=== PATIENT | male | born 1985 | race African-American/Black ===

== ENCOUNTER 2019-12-28 22:54 | Emergency (ER) | payer SELFPAY ==
[2019-12-29] MEDS ORDERED: ACETAMINOPHEN 325 MG TABLET PO ONE (02:03)
[2019-12-29 02:40] LABS: A TYPE INFLUENZA AG NEGATIVE (NEGATIVE); B INFLUENZA AG NEGATIVE (NEGATIVE)
--- NOTE | 2019-12-29 02:55 | RADIOLOGY REPORT (SQ) ---
EXAM DESCRIPTION: XR CHEST 1 VIEW COMPLETED DATE/TME: 12/29/2019 02:03 CLINICAL HISTORY: 34 years, Male, fever COMPARISON: None. NUMBER OF VIEWS: TECHNIQUE: LIMITATIONS: None. FINDINGS: There is infiltrate at the right lung base, compatible with pneumonia. The lungs are otherwise clear. There is no significant sized pleural effusion. The heart and mediastinum are unremarkable. Pulmonary vascularity appears normal. IMPRESSION: Right basilar pneumonia. copyright 2010 [employer]- All Rights Reserved
[2019-12-29] MEDS ORDERED: AMOXICILLIN TR/POT CLAVULANATE 875-125 MG TAB PO ONE (03:35)
--- NOTE | 2019-12-29 03:35 | ER Document Report ---
ED Fever - General Chief Complaint: Fever Stated Complaint: FEVER,HEADACHE,CHILLS Time Seen by Provider: 12/29/19 01:17 Primary Care Provider: [facility] [Provider Group] - Follow up in 1 week Notes: Patient is a 34-year-old male who presents emergency department with a 2-day history of fever. Patient states that 2 days ago, he generally did not feel well. He went got tested for COVID-19 and was negative. The next day, he was tested for flu and the test was negative. Today, the patient still did not feel well. He has another COVID test pending. Patient states that he is starting to have bilateral ear pain, but mainly on the left side. States that he has been taking ibuprofen and Tylenol, but still continues to have fevers. She has a history of sleep apnea. Wears a CPAP at night. - Related Data Allergies/Adverse Reactions: No Known Allergies Allergy (Unverified 12/29/19 01:40) Past Medical History - General Information source: Patient - Social History Smoking Status: Current Every Day Smoker Chew tobacco use (# tins/day): No Smoking Education Provided: Yes - >3 minutes Frequency of alcohol use: daily Drug Abuse: None Family History: Reviewed & Not Pertinent Patient has homicidal ideation: No Review of Systems - Review of Systems Notes: REVIEW OF SYSTEMS: CONSTITUTIONAL : See HPI. EENT: Denies eye, throat, or mouth pain, discharge, or symptoms. Denies nasal or sinus congestion. See HPI. CARDIOVASCULAR: Denies chest pain. RESPIRATORY: Denies shortness of breath, cough, congestion, difficulty breathing, or wheezing. GASTROINTESTINAL: Denies nausea, vomiting, and diarrhea. Denies abdominal pain. Denies constipation. GENITOURINARY: Denies difficulty urinating, burning, blood in urine, urgency or frequency. MUSCULOSKELETAL: Denies neck and back pain. Denies joint pain or swelling. SKIN: Denies rash, itchiness, or lesions HEMATOLOGIC : Denies easy bruising or bleeding. LYMPHATIC: Denies swollen, painful, enlarged glands. NEUROLOGICAL: Denies no numbness or tingling denies weakness. Denies headache. Denies altered mental status. Denies alteration in speech. PSYCHIATRIC: Denies stress, anxiety, alteration in sleep patterns, or depression. All other systems reviewed and negative. Physical Exam - Vital signs Vitals: Temp Pulse Resp BP Pulse Ox 99.4 F 88 18 105/77 100 12/28/19 23:43 12/28/19 23:43 12/28/19 23:43 12/28/19 23:43 12/28/19 23:43 - Notes Notes: PHYSICAL EXAMINATION: GENERAL: Appears well, healthy, well-nourished, no acute distress. HEAD: Normocephalic, atraumatic. EYES: PERRL, conjunctiva normal, all extraocular movements intact, sclera nonicteric ENT: Moist mucous membranes. Erythema noted to bilateral tympanic membranes NECK: Supple, no noticeable swelling, redness, rash. Normal range of motion. LUNGS: Coarse breath sounds noted to right lower lobe. Clear breath sounds noted throughout other lung gonzalez. CARDIOVASCULAR: S1-S2, regular rate, regular rhythm. Radial pulses 2+, normal. ABDOMEN: Normoactive bowel sounds. Soft, nontender, no guarding, no rebound tenderness, and no masses palpated. EXTREMITIES: Normal strength and range of motion, no pitting or edema. No cyanosis. NEUROLOGICAL: Moves all extremities upon command. Strength 5/5 in all extremities. PSYCH: Normal mood, normal affect. SKIN: Warm, dry. No rash, lesions, ulcerations noted. Normal skin turgor. Course - Re-evaluation Re-evalutation: 12/29/19 Chest x-ray shows right basilar pneumonia. Flu and strep tests are negative. Patient also has bilateral otitis media on physical exam. No tenderness at mastoid process. Will place the patient on Augmentin. Patient's COVID test is pending on outpatient basis. Patient is to follow-up with his primary care provider once his COVID test comes back as negative. He is in agreement with this plan. Follow-up precautions were given. Verbal discharge instructions were given to the patient. They verbalized understanding. They are stable for discharge. - Vital Signs Vital signs: Temp Pulse Resp BP Pulse Ox 99.4 F 94 20 102/56 L 98 12/29/19 03:41 12/29/19 03:41 12/29/19 03:41 12/29/19 03:41 12/29/19 03:41 Discharge - Discharge Clinical Impression: Bilateral pneumonia Qualifiers: Pneumonia type: due to unspecified organism Lung location: unspecified part of lung Qualified Code(s): J18.9 - Pneumonia, unspecified organism Bilateral otitis media Qualifiers: Otitis media type: suppurative Chronicity: acute Recurrence: not specified as recurrent Spontaneous tympanic membrane rupture: without spontaneous rupture Qualified Code(s): H66.003 - Acute suppurative otitis media without spontaneous rupture of ear drum, bilateral Condition: Stable Disposition: HOME, SELF-CARE Additional Instructions: You were seen today in the emergency department for a fever and generally not feeling well. You have ear infections and pneumonia. Take your antibiotics as prescribed. Make sure you finish your antibiotics, even if you start to feel better. Take ibuprofen 600 mg and acetaminophen 1000 mg every 6 hours for your pain or fever. Please continue to stay in quarantine until your COVID test is back. If your COVID test is negative, follow-up with your primary care provider next week. If it is positive, stay in quarantine for a total of 2 weeks. Prescriptions: Amoxicillin/Potassium Clav [Augmentin 875-125 Tablet] 1 tab PO BID #20 tab Forms: Return to Work Referrals: [facility] [Provider Group] - Follow up in 1 week
[2019-12-29 03:45] VITALS: BP 102/56
== END 2019-12-29 03:50 | disposition home or self-care (01) ==
LOC: ER 22:54
DX: J18.9 Pneumonia, unspecified organism (principal); H66.003 Acute suppurative otitis media without spontaneous rupture of ear drum, bilateral; R50.9 Fever, unspecified; H92.03 Otalgia, bilateral; F17.200 Nicotine dependence, unspecified, uncomplicated; G47.30 Sleep apnea, unspecified; Z99.89 Dependence on other enabling machines and devices
CPT/HCPCS: 99284; 87070; 87880; 87804; 71045; J3490; 87077

== ENCOUNTER 2019-12-31 05:16 | Inpatient (IN) | payer OTHER ==
--- NOTE | 2019-12-31 06:25 | RADIOLOGY REPORT (SQ) ---
EXAM DESCRIPTION: XR CHEST 1 VIEW COMPLETED DATE/TME: 12/31/2019 00:00 CLINICAL HISTORY: 34 years, Male, shortness of breath COMPARISON: 12/29/2019 chest NUMBER OF VIEWS: 1 TECHNIQUE: Portable chest LIMITATIONS: None. FINDINGS: The heart size is normal. Worsening airspace opacities of the right lung base and right perihilar region. No pneumothorax. IMPRESSION: Worsening right lower lobe pneumonia copyright 2010 [employer]- All Rights Reserved
[2019-12-31 06:29] LABS: HEMATOCRIT 36.1 % (37.9-51.0); HEMOGLOBIN 12.9 g/dL (13.5-17.0); MEAN CORPUSCULAR HEMOGLOBIN 31.3 pg (27.0-33.4); MEAN CORPUSCULAR HGB CONC 35.8 g/dL (32.0-36.0); MEAN CORPUSCULAR VOLUME 88 fl (80-97); PLATELET COUNT 171 10^3/uL (150-450); RED BLOOD COUNT 4.12 10^6/uL (4.35-5.55); WHITE BLOOD COUNT 10.3 10^3/uL (4.0-10.5)
[2019-12-31 06:50] LABS: ALBUMIN 2.9 g/dL (3.5-5.0); ALKALINE PHOSPHATASE 134 U/L (38-126); ANION GAP 10 (5-19); ASPARTATE AMINO TRANSFERASE 107 U/L (17-59); BILIRUBIN,DIRECT 0.4 mg/dL (0.0-0.4); BILIRUBIN,TOTAL 0.7 mg/dL (0.2-1.3); BLOOD UREA NITROGEN 9 mg/dL (7-20); CALCIUM 8.2 mg/dL (8.4-10.2); CARBON DIOXIDE 23 mmol/L (22-30); CHLORIDE 98 mmol/L (98-107); GLUCOSE 145 mg/dL (75-110); POTASSIUM 3.9 mmol/L (3.6-5.0); TOTAL PROTEIN 5.9 g/dL (6.3-8.2)
[2019-12-31 06:51] LABS: APPEARANCE,URINE CLEAR; BILIRUBIN,URINE NEGATIVE (NEGATIVE); COLOR,URINE YELLOW; GLUCOSE, URINE NEGATIVE (NEGATIVE); KETONES,URINE TRACE mg/dL (NEGATIVE); LEUKOCYTE ESTERASE,URINE NEGATIVE (NEGATIVE); NITRITE,URINE NEGATIVE (NEGATIVE); PROTEIN,URINE 30 mg/dL (NEGATIVE); URINE SPECIFIC GRAVITY 1.006
[2019-12-31 07:05] LABS: ABSOLUTE LYMPHOCYTES# (MANUAL) 0.8 10^3/uL (0.5-4.7); ABSOLUTE MONOCYTES # (MANUAL) 0.5 10^3/uL (0.1-1.4); BAND NEUTROPHILS % (MANUAL) 2 % (3-5); BASOPHILS % (MANUAL) 0 % (0-2); EOSINOPHILS % (MANUAL) 0 % (0-6); LYMPHOCYTES % (MANUAL) 8 % (13-45); METAMYELOCYTES % (MANUAL) 1 % (0-1); MONOCYTES % (MANUAL) 5 % (3-13); SEGMENTED NEUTROPHILS % (MAN) 84 % (42-78); TOTAL CELLS COUNTED 100
[2019-12-31 07:06] LABS: ANISOCYTOSIS SLIGHT; PLATELET COMMENT ADEQUATE
[2019-12-31] MEDS ORDERED: LEVOFLOXACIN 750 MG/D5W RTU 750 MG/150 ML RTUPB IV ONE (07:07)
[2019-12-31] MEDS ORDERED: RINGERS SOLUTION,LACTATED 1,000 ML IV ONE (07:07)
--- NOTE | 2019-12-31 07:45 | ER Document Report ---
Entered by CATALINA ALLRED SCRIBE 12/31/19 0707 Acting as scribe for:ARAM BELLA MD ED Respiratory Problem - General Chief Complaint: Fever Stated Complaint: FEVER Time Seen by Provider: 12/31/19 06:49 Mode of Arrival: Ambulatory Information source: Patient Notes: This 34 year old male patient presents to the emergency department today with complaints of a continued non-productive cough with intermittent fevers and chills. Patient was seen here at this facility on 12/27 and was diagnosed with a right basilar pneumonia and he was sent home on augmentin. He reports that he has gotten worse since being seen that day, stating he has been sweating, feels hot, and generally bad with a continued non-productive cough. He has been tested for COVID twice, with the last time being on 12/26 at [facility] but he does not know the results yet. - Related Data Allergies/Adverse Reactions: No Known Allergies Allergy (Verified 12/31/19 05:59) Home Medications: amoxicillin, tylenol, motrin Past Medical History - General Information source: Patient - Social History Smoking Status: Current Every Day Smoker Cigarette use (# per day): Yes - 2 ppd Frequency of alcohol use: Heavy - at least 1 pint every evening Drug Abuse: None Lives with: Family Family History: Reviewed & Not Pertinent Pulmonary Medical History: Reports: Hx Pneumonia Past Surgical History: Reports: Hx Oral Surgery Review of Systems - Review of Systems Constitutional: No symptoms reported EENT: No symptoms reported Cardiovascular: No symptoms reported Respiratory: See HPI, Cough Gastrointestinal: No symptoms reported Genitourinary: No symptoms reported Male Genitourinary: No symptoms reported Musculoskeletal: No symptoms reported Skin: No symptoms reported Hematologic/Lymphatic: No symptoms reported Neurological/Psychological: No symptoms reported -: Yes All other systems reviewed and negative Physical Exam - Vital signs Vitals: Temp 100.5 F H 12/31/19 05:16 - Notes Notes: Physical Exam: General: Alert, appears uncomfortable. HEENT: Normocephalic. Atraumatic. PERRL. Extraocular movements intact. Oropharynx clear. Neck: Supple. Non-tender. Respiratory: Mild respiratory distress. Rhonchi at the right base, decreased air movement in the right base. Cardiovascular: Regular rate and rhythm. Abdominal: Normal Inspection. Non-tender. No distension. Normal Bowel Sounds. Back: No gross abnormalities. Extremities: Moves all four extremities. Upper extremities: Normal inspection. Normal ROM. Lower extremities: Normal inspection. No edema. Normal ROM. Neurological: Normal cognition. AAOx4. Normal speech. Psychological: Normal affect. Normal Mood. Skin: Warm. Diaphoretic. Normal color. Course - Re-evaluation Re-evalutation: 12/31/19 08:37 The patient was evaluated during the global COVID-19 pandemic and that diagnosis was suspected/considered upon their initial presentation. Their evaluation, treatment and testing was consistent with current guidelines for patients who present with complaints or symptoms that may be related to COVID-19. - Vital Signs Vital signs: Temp Pulse Resp BP Pulse Ox 100.5 F H 19 123/77 94 12/31/19 05:16 12/31/19 06:01 12/31/19 06:01 12/31/19 06:01 - Laboratory Result Diagrams: 12/31/19 05:53 12/31/19 05:53 Laboratory results interpreted by me: 12/31/19 12/31/19 12/31/19 05:53 05:53 05:53 RBC 4.12 L Hgb 12.9 L Hct 36.1 L Seg Neuts % (Manual) 84 H Band Neutrophils % 2 L Lymphocytes % (Manual) 8 L Abs Neuts (Manual) 9.0 H D-Dimer 2.79 H Sodium 130.6 L Glucose 145 H Calcium 8.2 L AST 107 H ALT 88 H Alkaline Phosphatase 134 H Lactate Dehydrogenase Total Protein 5.9 L Albumin 2.9 L Urine Protein Urine Ketones Urine Blood Urine Urobilinogen 12/31/19 12/31/19 05:53 06:12 RBC Hgb Hct Seg Neuts % (Manual) Band Neutrophils % Lymphocytes % (Manual) Abs Neuts (Manual) D-Dimer Sodium Glucose Calcium AST ALT Alkaline Phosphatase Lactate Dehydrogenase 339 H Total Protein Albumin Urine Protein 30 H Urine Ketones TRACE H Urine Blood SMALL H Urine Urobilinogen 2.0 H - Diagnostic Test Radiology reviewed: Image reviewed, Reports reviewed - Worsening right lower lobe pneumonia - Consults Dr. Mas Time consulted: 08:33 Consulted provider: will come to ER Discharge - Discharge Clinical Impression: Right lower lobe pneumonia Qualifiers: Pneumonia type: due to unspecified organism Qualified Code(s): J18.9 - Pneumonia, unspecified organism Fever Qualifiers: Fever type: unspecified Qualified Code(s): R50.9 - Fever, unspecified Leukocytosis Qualifiers: Leukocytosis type: bandemia Qualified Code(s): D72.825 - Bandemia Condition: Stable Disposition: ADMITTED INPATIENT Admitting Provider: Chace (Hospitalist) Unit Admitted: Medical Floor - COVID unit for PUI I personally performed the services described in the documentation, reviewed and edited the documentation which was dictated to the scribe in my presence, and it accurately records my words and actions.
[2019-12-31] MEDS ORDERED: ACETAMINOPHEN 325 MG TABLET PO ONE (07:57)
[2019-12-31] MEDS ORDERED: KETOROLAC TROMETHAMINE INJ/PF 30 MG/1 ML SDV IV ONE (07:57)
[2019-12-31] MEDS ORDERED: ONDANSETRON 4 MG TAB.RAPDIS PO PRN (10:54)
[2019-12-31] MEDS ORDERED: NORMAL SALINE 1000 ML 1,000 ML IV ONE (10:56)
[2019-12-31] MEDS ORDERED: ACETAMINOPHEN 325 MG TABLET PO PRN (10:59)
[2019-12-31] MEDS ORDERED: LORAZEPAM INJ 2 MG/1 ML VIAL IV PRN (11:01)
--- NOTE | 2019-12-31 11:06 | PDOC H&P ---
History of Present Illness Admission Date/PCP: 12/31/19 09:02 [facility] Patient complains of: generalized body malaise, dyspnea History of Present Illness: DENG ESPINOSA is a 34 year old male, PMH of arthritis, current everyday smoker,, who came back to the ED due to generalized malaise and high grade fevers. 5 days [employer], patient started to experience generalized body malaise with associated high grade fever 102. HE consulted [facility] 4 days [employer] where a COVID test was sent which was negative. He continued to have high grade fever, with generalized malaise, decreases appetite and minimal cough. He came back to [facility] and was retested for COVID 19. 2 days [employer], his symptoms worsened hence he came to [facility]. He was tested for the flu and strep which were negative. CXR revealed a right lower lobe pneumonia, bilateral otitis media and he was sent home on Ibuprofen, tylenol and augmentin. Persistence of his fever and body malaise prompted consult and admission. In the ED, BP 116/67, HR 80, RR23, O2sat 100%. WBC 10.3. CMP showed Na 130.6, elevated ferritin 634, transaminitis, LDH 339. CXR showed right lower lobe pneumonia worsening from previous CXR done 12/29/19. He was given levaquin and IV fluids. COVID test collected at [facility] on Monday came back negative today. He admits to smoking 2 packs a day for 8 years, he admits to drinking a pint of Vodka daily, no prior withdrawal symptoms. He uses CPAP at night. he denies any recent travel outside of [place]. He denies any recent IV drug use, no marijuana. Past Medical History Cardiac Medical History: Reports: None Pulmonary Medical History: Reports: Pneumonia EENT Medical History: Reports: None Neurological Medical History: Reports: None Endocrine Medical History: Reports: None Renal/ Medical History: Reports: None Malignancy Medical History: Reports: None GI Medical History: Reports: None Musculoskeltal Medical History: Reports: Arthritis Skin Medical History: Reports: None Psychiatric Medical History: Reports: Alcohol Dependency, Tobacco Dependency Traumatic Medical History: Reports: None Hematology: Reports: None Infectious Medical History: Reports: None Past Surgical History Past Surgical History: Reports: None Social History Information Source: Patient Lives with: Family Smoking Status: Current Every Day Smoker Cigarettes Packs Per Day: 40 Electronic Cigarette use?: No Number of Years Smokin Frequency of Alcohol Use: Heavy Hx Recreational Drug Use: No Drugs: None Hx Prescription Drug Abuse: No Family History Family History: Other - father had frequent pneumonia and CHF at the age of 50s Parental Family History Reviewed: Yes Children Family History Reviewed: Yes Sibling(s) Family History Reviewed.: Yes Medication/Allergy Home Medications: Amoxicillin/Potassium Clav [Augmentin 875-125 Tablet] 1 tab PO BID #20 tab 12/29/19 Acetaminophen [Tylenol 325 mg Tablet] 650 mg PO Q6HP PRN 12/31/19 Ibuprofen [Motrin 800 mg Tablet] 800 mg PO Q8HP PRN 12/31/19 Allergies/Adverse Reactions: No Known Allergies Allergy (Verified 12/31/19 05:59) Review of Systems Constitutional: PRESENT: anorexia, chills, fever(s), headache(s), weakness Eyes: PRESENT: as per HPI Ears: PRESENT: other - ear pain Cardiovascular: PRESENT: as per HPI Respiratory: PRESENT: cough, dyspnea, hemoptysis Gastrointestinal: PRESENT: as per HPI Genitourinary: PRESENT: as per HPI Musculoskeletal: PRESENT: as per HPI Integumentary: PRESENT: as per HPI Neurological: PRESENT: as per HPI Endocrine: PRESENT: as per HPI Hematologic/Lymphatic: PRESENT: as per HPI Physical Exam Vital Signs: Temp Pulse Resp BP Pulse Ox 99.7 F 21 H 123/74 96 12/31/19 08:50 12/31/19 10:01 12/31/19 10:01 12/31/19 10:01 Intake & Output 12/30/19 12/31/19 01/01/20 06:59 06:59 06:59 Intake Total 1150 Balance 1150 Weight 92.986 kg General appearance: PRESENT: no acute distress, well-nourished Head exam: PRESENT: atraumatic, normocephalic Eye exam: PRESENT: EOMI, PERRLA Ear exam: PRESENT: normal external ear exam Mouth exam: PRESENT: dry mucosa Neck exam: PRESENT: full ROM. ABSENT: lymphadenopathy Respiratory exam: PRESENT: clear to auscultation salima, symmetrical, tachypnea. ABSENT: rales, wheezes Cardiovascular exam: PRESENT: RRR, +S1, +S2 Pulses: PRESENT: +2 pedal pulses bilateral GI/Abdominal exam: PRESENT: normal bowel sounds, soft. ABSENT: rebound, tenderness Extremities exam: PRESENT: full ROM Musculoskeletal exam: PRESENT: full ROM Neurological exam: PRESENT: alert, awake, oriented to person, oriented to place, oriented to time Psychiatric exam: PRESENT: normal mood Results Laboratory Results: 12/31/19 05:53 12/31/19 05:53 12/31/19 12/31/19 12/31/19 05:53 05:53 06:12 WBC 10.3 RBC 4.12 L Hgb 12.9 L Hct 36.1 L MCV 88 MCH 31.3 MCHC 35.8 RDW 14.0 Plt Count 171 Seg Neutrophils % Not Reportable Sodium 130.6 L Potassium 3.9 Chloride 98 Carbon Dioxide 23 Anion Gap 10 BUN 9 Creatinine 1.16 Est GFR ( Amer) > 60 Glucose 145 H Calcium 8.2 L Total Bilirubin 0.7 AST 107 H Alkaline Phosphatase 134 H Total Protein 5.9 L Albumin 2.9 L Urine Color YELLOW Urine Appearance CLEAR Urine pH 6.0 Ur Specific [place] 1.006 Urine Protein 30 H Urine Glucose (UA) NEGATIVE Urine Ketones TRACE H Urine Blood SMALL H Urine Nitrite NEGATIVE Ur Leukocyte Esterase NEGATIVE Urine WBC (Auto) 8 Urine RBC (Auto) 1 Impressions: Chest X-Ray 12/31/19 00:00 IMPRESSION: Worsening right lower lobe pneumonia copyright 2011 [employer]- All Rights Reserved Assessment and Plan - Diagnosis (1) Right lower lobe pneumonia Qualifiers: Pneumonia type: due to unspecified organism Qualified Code(s): J18.9 - Pneumonia, unspecified organism Is this a current diagnosis for this admission?: Yes Plan: - came in with fever,generalized malaise, cough - CXR showed RLL pneumonia - flue negative, COVID negative x 2 - WBC 10.3 - LDH 339, AST 107, ALT 88, ALP 134 - Na 130.6 - Ddx: CAP fr legionella pneumonia, PCP pneumonia given elevated LDH, aspiration pneumonia, less likely COVID pneumonia given negative x 2 testing - awaiting blood and sputum culture - urine legionella, urine strep pneumo ag pending - ceftri and azithro for abx pending work up (2) Transaminitis Is this a current diagnosis for this admission?: Yes Plan: - AST 107, ALT 88, ALP 134 - he has a hx of heavy alcohol use which can explain transaminitis - also received augmentin which can elevate ALP - hepatitis panel sent - will monitor daily (3) Alcohol dependence Qualifiers: Substance use status: unspecified alcohol-induced disorder Qualified Code(s): F10.29 - Alcohol dependence with unspecified alcohol-induced disorder Is this a current diagnosis for this admission?: Yes Plan: - admits to drinking 1 pint of hennesy daily - last drink - will do CIWA score and ativan for withdrawal (4) Fever Qualifiers: Fever type: unspecified Qualified Code(s): R50.9 - Fever, unspecified Is this a current diagnosis for this admission?: Yes Plan: - due to Pneumonia - tylenol for fever - Time Time Spent with patient: 35 or more minutes Smoking Cessation Education: 3 to 10 minutes Medications reviewed and adjusted accordingly: Yes Anticipated Discharge Disposition: Home, Self Care Anticipated Discharge Timeframe: within 48 hours - Inpatient Certification Based on my medical assessment, after consideration of the patient's comor bidities, presenting symptoms, or acuity I expect that the services needed warrant INPATIENT care.: Yes I certify that my determination is in accordance with my understanding of Medicare's requirements for reasonable and necessary INPATIENT services [42 CFR 412.3e].: Yes Medical Necessity: Need for IV Antibiotics
[2019-12-31] MEDS: HEPARIN SOD (PORCINE) 5,000 UNIT/ML 1 ML VIAL SUBCUT SCH ×2 (15:55→22:29)
[2019-12-31 15:58] LABS: ANION GAP 11 (5-19); BLOOD UREA NITROGEN 10 mg/dL (7-20); CALCIUM 8.7 mg/dL (8.4-10.2); CARBON DIOXIDE 25 mmol/L (22-30); CHLORIDE 99 mmol/L (98-107); GLUCOSE 173 mg/dL (75-110); POTASSIUM 4.3 mmol/L (3.6-5.0)
[2019-12-31] MEDS: NORMAL SALINE 1000 ML 1,000 ML IV PRN (22:30)
[2020-01-01 05:38] LABS: HEPATITS B SURFACE ANTIGEN Negative (Negative)
[2020-01-01] MEDS: HEPARIN SOD (PORCINE) 5,000 UNIT/ML 1 ML VIAL SUBCUT SCH ×3 (06:04→21:49)
[2020-01-01 06:10] LABS: HEMATOCRIT 37.9 % (37.9-51.0); MEAN CORPUSCULAR HEMOGLOBIN 30.3 pg (27.0-33.4); MEAN CORPUSCULAR HGB CONC 34.4 g/dL (32.0-36.0); MEAN CORPUSCULAR VOLUME 88 fl (80-97); PLATELET COUNT 209 10^3/uL (150-450); RED CELL DISTRIBUTION WIDTH 14.3 % (11.5-14.0); WHITE BLOOD COUNT 16.1 10^3/uL (4.0-10.5)
[2020-01-01] MEDS: NORMAL SALINE 1000 ML 1,000 ML IV PRN ×3 (06:19→17:59)
[2020-01-01 06:20] LABS: ALBUMIN 2.9 g/dL (3.5-5.0); ALKALINE PHOSPHATASE 125 U/L (38-126); ANION GAP 8 (5-19); ASPARTATE AMINO TRANSFERASE 128 U/L (17-59); BILIRUBIN,DIRECT 0.3 mg/dL (0.0-0.4); BILIRUBIN,TOTAL 0.4 mg/dL (0.2-1.3); BLOOD UREA NITROGEN 13 mg/dL (7-20); CALCIUM 8.6 mg/dL (8.4-10.2); CARBON DIOXIDE 22 mmol/L (22-30); CHLORIDE 105 mmol/L (98-107); GLUCOSE 137 mg/dL (75-110); TOTAL PROTEIN 6.2 g/dL (6.3-8.2)
[2020-01-01 06:39] LABS: ABSOLUTE LYMPHOCYTES# (MANUAL) 1.4 10^3/uL (0.5-4.7); ABSOLUTE MONOCYTES # (MANUAL) 0.8 10^3/uL (0.1-1.4); BASOPHILS % (MANUAL) 0 % (0-2); EOSINOPHILS % (MANUAL) 0 % (0-6); LYMPHOCYTES % (MANUAL) 9 % (13-45); MONOCYTES % (MANUAL) 5 % (3-13); SEGMENTED NEUTROPHILS % (MAN) 86 % (42-78); TOTAL CELLS COUNTED 100
[2020-01-01 06:40] LABS: ANISOCYTOSIS SLIGHT; PLATELET COMMENT ADEQUATE; TOXIC GRANULATION SLIGHT
--- NOTE | 2020-01-01 06:46 | PDOC PROGRESS REPORT ---
Subjective Progress Note for:: 01/01/20 Subjective:: DENG ESPINOSA is a 34 year old male, PMH of arthritis, current everyday smoker,, who came back to the ED due to generalized malaise and high grade fevers. 5 days [employer], patient started to experience generalized body malaise with associated high grade fever 102. HE consulted [facility] 4 days [employer] where a COVID test was sent which was negative. He continued to have high grade fever, with generalized malaise, decreases appetite and minimal cough. He came back to [facility] and was retested for COVID 19. 2 days [employer], his symptoms worsened hence he came to [facility]. He was tested for the flu and strep which were negative. CXR revealed a right lower lobe pneumonia, bilateral otitis media and he was sent home on Ibuprofen, tylenol and augmentin. Persistence of his fever and body malaise prompted consult and admission. In the ED, BP 116/67, HR 80, RR23, O2sat 100%. WBC 10.3. CMP showed Na 130.6, elevated ferritin 634, transaminitis, LDH 339. CXR showed right lower lobe pneumonia worsening from previous CXR done 12/29/19. He was given levaquin and IV fluids. COVID test collected at [facility] [place] on Monday came back negative today. He admits to smoking 2 packs a day for 8 years, he admits to drinking a pint of Vodka daily, no prior withdrawal symptoms. He uses CPAP at night. he denies any recent travel outside of [place]. He denies any recent IV drug use, no marijuana. D2 hospital stay 01/01/20. Patient was seen and examined at bedside. Afebrile, still with body malaise but improved from yesterday, no SOB. Blood culture grew coagulase negative staph in 1 bottle. He is on d2 of ceftriaxone and azithro. Reason For Visit: RIGHT LOWER LOBE PNEUMONIA Physical Exam Vital Signs: Temp Pulse Resp BP Pulse Ox 98.2 F 96 21 H 129/61 H 97 12/31/19 15:49 01/01/20 02:00 12/31/19 15:49 12/31/19 15:49 01/01/20 05:17 Intake & Output 12/30/19 12/31/19 01/01/20 06:59 06:59 06:59 Intake Total 3571 Output Total 350 Balance 3221 Weight 92.986 kg General appearance: PRESENT: no acute distress, cooperative Head exam: PRESENT: atraumatic, normocephalic Eye exam: PRESENT: EOMI, PERRLA Mouth exam: PRESENT: moist Neck exam: PRESENT: full ROM Respiratory exam: PRESENT: rales, symmetrical, unlabored. ABSENT: tachypnea, wheezes Cardiovascular exam: PRESENT: RRR, +S1, +S2 GI/Abdominal exam: PRESENT: normal bowel sounds, soft. ABSENT: rebound, tenderness Extremities exam: PRESENT: full ROM Musculoskeletal exam: PRESENT: full ROM Neurological exam: PRESENT: alert, awake, oriented to person, oriented to place, oriented to time, oriented to situation Psychiatric exam: PRESENT: normal mood Skin exam: PRESENT: normal color Results Laboratory Results: 01/01/20 04:47 01/01/20 04:47 12/31/19 12/31/19 12/31/19 05:53 05:53 05:53 WBC 10.3 RBC 4.12 L Hgb 12.9 L Hct 36.1 L MCV 88 MCH 31.3 MCHC 35.8 RDW 14.0 Plt Count 171 Seg Neutrophils % Not Reportable Sodium 130.6 L Potassium 3.9 Chloride 98 Carbon Dioxide 23 Anion Gap 10 BUN 9 Creatinine 1.16 Est GFR ( Amer) > 60 Glucose 145 H Calcium 8.2 L Ferritin 634.00 H Total Bilirubin 0.7 AST 107 H Alkaline Phosphatase 134 H Total Protein 5.9 L Albumin 2.9 L Urine Color Urine Appearance Urine pH Ur Specific [place] Urine Protein Urine Glucose (UA) Urine Ketones Urine Blood Urine Nitrite Ur Leukocyte Esterase Urine WBC (Auto) Urine RBC (Auto) 12/31/19 12/31/19 01/01/20 06:12 15:07 04:47 WBC 16.1 H RBC 4.30 L Hgb 13.0 L Hct 37.9 MCV 88 MCH 30.3 MCHC 34.4 RDW 14.3 H Plt Count 209 Seg Neutrophils % Not Reportable Sodium 135.3 L Potassium 4.3 Chloride 99 Carbon Dioxide 25 Anion Gap 11 BUN 10 Creatinine 0.97 Est GFR ( Amer) > 60 Glucose 173 H Calcium 8.7 Ferritin Total Bilirubin AST Alkaline Phosphatase Total Protein Albumin Urine Color YELLOW Urine Appearance CLEAR Urine pH 6.0 Ur Specific [place] 1.006 Urine Protein 30 H Urine Glucose (UA) NEGATIVE Urine Ketones TRACE H Urine Blood SMALL H Urine Nitrite NEGATIVE Ur Leukocyte Esterase NEGATIVE Urine WBC (Auto) 8 Urine RBC (Auto) 1 01/01/20 04:47 WBC RBC Hgb Hct MCV MCH MCHC RDW Plt Count Seg Neutrophils % Sodium 135.1 L Potassium 5.0 Chloride 105 Carbon Dioxide 22 Anion Gap 8 BUN 13 Creatinine 0.82 Est GFR ( Amer) > 60 Glucose 137 H Calcium 8.6 Ferritin Total Bilirubin 0.4 AST 128 H Alkaline Phosphatase 125 Total Protein 6.2 L Albumin 2.9 L Urine Color Urine Appearance Urine pH Ur Specific [place] Urine Protein Urine Glucose (UA) Urine Ketones Urine Blood Urine Nitrite Ur Leukocyte Esterase Urine WBC (Auto) Urine RBC (Auto) Impressions: Chest X-Ray 12/31/19 00:00 IMPRESSION: Worsening right lower lobe pneumonia copyright 2011 [employer]- All Rights Reserved Assessment and Plan - Diagnosis (1) Right lower lobe pneumonia Qualifiers: Pneumonia type: due to unspecified organism Qualified Code(s): J18.9 - Pne umonia, unspecified organism Is this a current diagnosis for this admission?: Yes Plan: - came in with fever,generalized malaise, cough - CXR showed RLL pneumonia - flue negative, COVID negative x 2 - WBC 10.3>16.1 - LDH 339, AST 107, ALT 88, ALP 134 - Na 130.6 - Ddx: CAP fr legionella pneumonia, PCP pneumonia given elevated LDH, aspiration pneumonia, less likely COVID pneumonia given negative x 2 testing - blood culture 1 bottle growing coagulase negative staph probably a contaminant. Second bottle negative - urine legionella, urine strep pneumo ag pending - continue ceftri and azithro for abx pending work up (2) Transaminitis Is this a current diagnosis for this admission?: Yes Plan: - AST 107>128, ALT 88>117, ALP 134>125 - he has a hx of heavy alcohol use which can explain transaminitis, - also received augmentin which can elevate ALP - hepatitis panel negative - will monitor daily - advised to abstain from alcohol (3) Alcohol dependence Qualifiers: Substance use status: unspecified alcohol-induced disorder Qualified Code(s): F10.29 - Alcohol dependence with unspecified alcohol-induced disorder Is this a current diagnosis for this admission?: Yes Plan: - admits to drinking 1 pint of hensaraiy daily - last drink monday12/25/19 - will do CIWA score and ativan for withdrawal. So far has not required ativan for withdrawal (4) Fever Qualifiers: Fever type: unspecified Qualified Code(s): R50.9 - Fever, unspecified Is this a current diagnosis for this admission?: Yes Plan: - due to Pneumonia - tylenol for fever (5) Hyponatremia Is this a current diagnosis for this admission?: Yes Plan: - Na 130.6>135.1 - improved with IV fluids - - Time Time Spent with patient: 25-34 minutes Smoking Cessation Education: 3 to 10 minutes Medications reviewed and adjusted accordingly: Yes Anticipated Discharge Disposition: Home, Self Care Anticipated Discharge Timeframe: within 48 hours
[2020-01-01 07:57] LABS: HEPATITIS C VIRUS ANTIBODY <0.1 s/co ratio (0.0-0.9)
[2020-01-01] MEDS: CEFTRIAXONE 2 GM/D5W RTU 2 GM/50 ML RTUPB IV SCH (09:35)
[2020-01-01] MEDS: AZITHROMYCIN 250 MG TABLET PO SCH (09:35)
[2020-01-02] MEDS: NORMAL SALINE 1000 ML 1,000 ML IV PRN (03:00)
[2020-01-02] MEDS: HEPARIN SOD (PORCINE) 5,000 UNIT/ML 1 ML VIAL SUBCUT SCH (05:27)
[2020-01-02 07:04] LABS: HEMATOCRIT 35.6 % (37.9-51.0); HEMOGLOBIN 12.2 g/dL (13.5-17.0); MEAN CORPUSCULAR HEMOGLOBIN 30.7 pg (27.0-33.4); MEAN CORPUSCULAR HGB CONC 34.3 g/dL (32.0-36.0); MEAN CORPUSCULAR VOLUME 89 fl (80-97); PLATELET COUNT 240 10^3/uL (150-450); RED BLOOD COUNT 3.98 10^6/uL (4.35-5.55); RED CELL DISTRIBUTION WIDTH 14.5 % (11.5-14.0); WHITE BLOOD COUNT 9.2 10^3/uL (4.0-10.5)
[2020-01-02 07:14] LABS: ALBUMIN 2.6 g/dL (3.5-5.0); ALKALINE PHOSPHATASE 109 U/L (38-126); ANION GAP 7 (5-19); ASPARTATE AMINO TRANSFERASE 283 U/L (17-59); BILIRUBIN,DIRECT 0.2 mg/dL (0.0-0.4); BILIRUBIN,TOTAL 0.3 mg/dL (0.2-1.3); BLOOD UREA NITROGEN 16 mg/dL (7-20); CALCIUM 7.9 mg/dL (8.4-10.2); CARBON DIOXIDE 25 mmol/L (22-30); CHLORIDE 107 mmol/L (98-107); GLUCOSE 103 mg/dL (75-110); POTASSIUM 4.2 mmol/L (3.6-5.0); TOTAL PROTEIN 5.6 g/dL (6.3-8.2)
[2020-01-02 07:44] LABS: ABSOLUTE LYMPHOCYTES# (MANUAL) 3.4 10^3/uL (0.5-4.7); ABSOLUTE MONOCYTES # (MANUAL) 0.6 10^3/uL (0.1-1.4); BASOPHILS % (MANUAL) 0 % (0-2); EOSINOPHILS % (MANUAL) 3 % (0-6); LYMPHOCYTES % (MANUAL) 35 % (13-45); MONOCYTES % (MANUAL) 7 % (3-13); SEGMENTED NEUTROPHILS % (MAN) 49 % (42-78); TOTAL CELLS COUNTED 100
[2020-01-02 07:46] LABS: SMUDGE CELLS PRESENT
[2020-01-02 07:47] LABS: ANISOCYTOSIS SLIGHT; METAMYELOCYTES % (MANUAL) 3 % (0-1); MYELOCYTES % (MANUAL) 1 % (0); PLATELET COMMENT ADEQUATE; POIKILOCYTOSIS SLIGHT; TEAR DROP CELLS SLIGHT
[2020-01-02] MEDS: AZITHROMYCIN 250 MG TABLET PO SCH (10:01)
[2020-01-02] MEDS: CEFTRIAXONE 2 GM/D5W RTU 2 GM/50 ML RTUPB IV SCH (10:02)
--- NOTE | 2020-01-02 10:27 | PDOC DISCHARGE SUMMARY ---
Impression - Admit/DC Date/PCP Admission Date/Primary Care Provider: 12/31/19 09:02 [facility] Discharge Date: 01/02/20 - Discharge Diagnosis (1) Right lower lobe pneumonia Is this a current diagnosis for this admission?: Yes (2) Transaminitis Is this a current diagnosis for this admission?: Yes (3) Alcohol dependence Is this a current diagnosis for this admission?: Yes (4) Fever Is this a current diagnosis for this admission?: Yes (5) Hyponatremia Is this a current diagnosis for this admission?: Yes - Additional Information Discharge Diet: As Tolerated Discharge Activity: Activity As Tolerated [facility]errals: [facility] [Primary Care [facility]] - Follow up as needed Prescriptions: Levofloxacin [Levaquin 750 mg Tablet] 750 mg PO DAILY 5 Days #5 tab Benzonatate [Tessalon Perles 100 mg Capsule] 100 mg PO Q8HP PRN 5 Days #15 capsule PRN Reason: Home Medications: Acetaminophen [Tylenol 325 mg Tablet] 650 mg PO Q6HP PRN 12/31/19 Ibuprofen [Motrin 800 mg Tablet] 800 mg PO Q8HP PRN 12/31/19 Benzonatate [Tessalon Perles 100 mg Capsule] 100 mg PO Q8HP PRN 5 Days #15 capsule 01/02/20 Levofloxacin [Levaquin 750 mg Tablet] 750 mg PO DAILY 5 Days #5 tab 01/02/20 History of Present Illiness History of Present Illness: DENG ESPINOSA is a 34 year old male, PMH of arthritis, current everyday smoker,, who came back to the ED due to generalized malaise and high grade fevers. 5 days [employer], patient started to experience generalized body malaise with associated high grade fever 102. HE consulted [facility] 4 days [employer] where a COVID test was sent which was negative. He continued to have high grade fever, with generalized malaise, decreases appetite and minimal cough. He came back to [facility] and was retested for COVID 19. 2 days [employer], his symptoms worsened hence he came to [place] ED. He was tested for the flu and strep which were negative. CXR revealed a right lower lobe pneumonia, bilateral otitis media and he was sent home on Ibuprofen, tylenol and augmentin. Persistence of his fever and body malaise prompted consult and admission. In the ED, BP 116/67, HR 80, RR23, O2sat 100%. WBC 10.3. CMP showed Na 130.6, elevated ferritin 634, transaminitis, LDH 339. CXR showed right lower lobe pneumonia worsening from previous CXR done 12/29/19. He was given levaquin and IV fluids. COVID test collected at [facility] on Monday came back negative today. He admits to smoking 2 packs a day for 8 years, he admits to drinking a pint of Vodka daily, no prior withdrawal symptoms. He uses CPAP at night. he denies any recent travel outside of [place]. He denies any recent IV drug use, no marijuana. Hospital Course Hospital Course: The patient was started on IV ceftriaxone and azithromycin. 2nd HD, he remained afebrile with improvement of cough and body malaise. Hepatitis work up was negative. Blood cultures were negative. COVID test done outside were negative x 2. 3rd hospital day, he continued to improve and he was sent home on oral abx levaquin. He was advised to follow up with his PCP for a repeat CMP to monitor transaminitis. Physical Exam Vital Signs: Temp Pulse Resp BP Pulse Ox 98.5 F 61 18 115/65 100 01/02/20 07:27 01/02/20 07:27 01/02/20 07:27 01/02/20 07:27 01/02/20 07:27 Intake & Output 01/01/20 01/02/20 01/03/20 06:59 06:59 06:59 Intake Total 3571 2663 Output Total 350 Balance 3221 2663 Weight 94.2 kg 95.2 kg General appearance: PRESENT: no acute distress, cooperative Head exam: PRESENT: atraumatic, normocephalic Eye exam: PRESENT: EOMI, PERRLA Mouth exam: PRESENT: moist Neck exam: PRESENT: full ROM Respiratory exam: PRESENT: clear to auscultation salima, symmetrical, unlabored. ABSENT: crackles Cardiovascular exam: PRESENT: RRR, +S1, +S2 Pulses: PRESENT: normal radial pulses GI/Abdominal exam: PRESENT: normal bowel sounds, soft. ABSENT: guarding, tenderness Extremities exam: PRESENT: full ROM Musculoskeletal exam: PRESENT: full ROM Neurological exam: PRESENT: alert, awake, oriented to person, oriented to place, oriented to time, oriented to situation Psychiatric exam: PRESENT: normal mood Skin exam: PRESENT: normal color Results Laboratory Results: WBC 9.2 10^3/uL (4.0-10.5) 01/02/20 05:37 RBC 3.98 10^6/uL (4.35-5.55) L 01/02/20 05:37 Hgb 12.2 g/dL (13.5-17.0) L 01/02/20 05:37 Hct 35.6 % (37.9-51.0) L 01/02/20 05:37 MCV 89 fl (80-97) 01/02/20 05:37 MCH 30.7 pg (27.0-33.4) 01/02/20 05:37 MCHC 34.3 g/dL (32.0-36.0) 01/02/20 05:37 RDW 14.5 % (11.5-14.0) H 01/02/20 05:37 Plt Count 240 10^3/uL (150-450) 01/02/20 05:37 Lymph % (Auto) Not Reportable 01/02/20 05:37 [place] % (Auto) Not Reportable 01/02/20 05:37 Eos % (Auto) Not Reportable 01/02/20 05:37 Baso % (Auto) Not Reportable 01/02/20 05:37 Absolute Neuts (auto) Not Reportable 01/02/20 05:37 Absolute Lymphs (auto) Not Reportable 01/02/20 05:37 Absolute Monos (auto) Not Reportable 01/02/20 05:37 Absolute Eos (auto) Not Reportable 01/02/20 05:37 Absolute Basos (auto) Not Reportable 01/02/20 05:37 Total Counted 100 01/02/20 05:37 Seg Neutrophils % Not Reportable 01/02/20 05:37 Seg Neuts % (Manual) 49 % (42-78) 01/02/20 05:37 Band Neutrophils % 2 % (3-5) L 12/31/19 05:53 Lymphocytes % (Manual) 35 % (13-45) 01/02/20 05:37 Atypical Lymphs % 2 % (0) 01/02/20 05:37 Monocytes % (Manual) 7 % (3-13) 01/02/20 05:37 Eosinophils % (Manual) 3 % (0-6) 01/02/20 05:37 Basophils % (Manual) 0 % (0-2) 01/02/20 05:37 Metamyelocytes % 3 % (0-1) H 01/02/20 05:37 Myelocytes % 1 % (0) H 01/02/20 05:37 Abs Neuts (Manual) 4.9 10^3/uL (1.7-8.2) 01/02/20 05:37 Abs Lymphs (Manual) 3.4 10^3/uL (0.5-4.7) 01/02/20 05:37 Abs Monocytes (Manual) 0.6 10^3/uL (0.1-1.4) 01/02/20 05:37 Absolute Eos (Manual) 0.3 10^3/uL (0.0-0.6) 01/02/20 05:37 Abs Basophils (Manual) 0.0 10^3/uL (0.0-0.2) 01/02/20 05:37 Smudge Cells PRESENT 01/02/20 05:37 Toxic Granulation SLIGHT 01/01/20 04:47 Platelet Comment ADEQUATE 01/02/20 05:37 Poikilocytosis SLIGHT 01/02/20 05:37 Anisocytosis SLIGHT 01/02/20 05:37 Tear Drop Cells SLIGHT 01/02/20 05:37 D-Dimer 2.79 ug/mL (0.00-0.50) H 12/31/19 05:53 Sodium 138.5 mmol/L (137-145) 01/02/20 05:37 Potassium 4.2 mmol/L (3.6-5.0) 01/02/20 05:37 Chloride 107 mmol/L (98-107) 01/02/20 05:37 Carbon Dioxide 25 mmol/L (22-30) 01/02/20 05:37 Anion Gap 7 (5-19) 01/02/20 05:37 BUN 16 mg/dL (7-20) 01/02/20 05:37 Creatinine 0.92 mg/dL (0.52-1.25) 01/02/20 05:37 Est GFR ( Amer) > 60 (>60) 01/02/20 05:37 Est GFR (MDRD) Non-Af > 60 (>60) 01/02/20 05:37 Glucose 103 mg/dL (75-110) 01/02/20 05:37 Calcium 7.9 mg/dL (8.4-10.2) L 01/02/20 05:37 Ferritin 634.00 ng/mL (17.9-464.0) H 12/31/19 05:53 Total Bilirubin 0.3 mg/dL (0.2-1.3) 01/02/20 05:37 Direct Bilirubin 0.2 mg/dL (0.0-0.4) 01/02/20 05:37 Neonat Total Bilirubin Not Reportable 01/02/20 05:37 Neonat Direct Bilirubin Not Reportable 01/02/20 05:37 Neonat Indirect Bili Not Reportable 01/02/20 05:37 AST 283 U/L (17-59) H 01/02/20 05:37 ALT 307 U/L (<50) H 01/02/20 05:37 Alkaline Phosphatase 109 U/L (38-126) 01/02/20 05:37 Lactate Dehydrogenase 339 U/L (120-246) H 12/31/19 05:53 Total Protein 5.6 g/dL (6.3-8.2) L 01/02/20 05:37 Albumin 2.6 g/dL (3.5-5.0) L 01/02/20 05:37 Urine Color YELLOW 12/31/19 06:12 Urine Appearance CLEAR 12/31/19 06:12 Urine pH 6.0 (5.0-9.0) 12/31/19 06:12 Ur Specific [place] 1.006 12/31/19 06:12 Urine Protein 30 mg/dL (NEGATIVE) H 12/31/19 06:12 Urine Glucose (UA) NEGATIVE mg/dL (NEGATIVE) 12/31/19 06:12 Urine Ketones TRACE mg/dL (NEGATIVE) H 12/31/19 06:12 Urine Blood SMALL (NEGATIVE) H 12/31/19 06:12 Urine Nitrite NEGATIVE (NEGATIVE) 12/31/19 06:12 Urine Bilirubin NEGATIVE (NEGATIVE) 12/31/19 06:12 Urine Urobilinogen 2.0 mg/dL (<2.0) H 12/31/19 06:12 Ur Leukocyte Esterase NEGATIVE (NEGATIVE) 12/31/19 06:12 Urine WBC (Auto) 8 /HPF 12/31/19 06:12 Urine RBC (Auto) 1 /HPF 12/31/19 06:12 Squamous Epi Cells Auto <1 /HPF 12/31/19 06:12 Urine Ascorbic Acid NEGATIVE (NEGATIVE) 12/31/19 06:12 Hepatitis A IgM Ab Negative (Negative) 12/31/19 11:30 Hep Bs Antigen Negative (Negative) 12/31/19 11:30 Hep B Core IgM Ab Negative (Negative) 12/31/19 11:30 Hepatitis C Antibody <0.1 s/co ratio (0.0-0.9) 12/31/19 11:30 Impressions: Chest X-Ray 12/31/19 00:00 IMPRESSION: Worsening right lower lobe pneumonia copyright 2011 [employer]- All Rights Reserved Plan Health Concerns: - Transaminitis - repeat CMP in 1 week. Advised to abstain fom alcohol - Otitis media - continue oral abx Stroke Is this a Stroke Patient?: No Acute Heart Failure Is this a Heart Failure Patient?: No
[2020-01-02 12:03] VITALS: BP 117/74
[2020-01-02 13:43] LABS: PATH REVIEW PATHOLOGIST REVIEWED
== END 2020-01-02 13:01 | disposition home or self-care (01) | DRG 194 ==
LOC: ER 05:16 → EH 09:02 → 3N 12:16 → 4S 01-01 16:45
PROVIDERS: ADMIT Internal Medicine; ATTEND Internal Medicine
PROC: 5A09457 Assistance with Respiratory Ventilation, 24-96 Consecutive Hours, Continuous Positive Airway Pressure (ICD-10-PCS; principal; 2019-12-31)
DX: J18.9 Pneumonia, unspecified organism (principal); E87.1 Hypo-osmolality and hyponatremia; F10.29 Alcohol dependence with unspecified alcohol-induced disorder; R74.01 Elevation of levels of liver transaminase levels; R50.9 Fever, unspecified; H66.93 Otitis media, unspecified, bilateral; F17.210 Nicotine dependence, cigarettes, uncomplicated; Z79.899 Other long term (current) drug therapy
CPT/HCPCS: 36415; 71045; 80053; 80074; 81001; 82728; 83615; 85025; 85379; 87040; 87070; 87077; 87150; 87205; 94660; 96365; 96375; 99285; J0696; J1644; J1885; J1956; J7030; J7120